=== PATIENT | male | born 1990 | race Caucasian/White ===

== ENCOUNTER → 2017-04-06 | Outpatient (REF) ==
--- NOTE | 2017-04-06 19:39 | REP ---
Left TIB-fib series: Four views: History: Degenerative disease. No comparison study. Findings: There is an intramedullary sharon in place in the tibia. There is a nonunited mid shaft fracture. There is an adjacent mid shaft fracture of the fibular diaphysis which does show at least incomplete bony union. There is diffuse soft tissue swelling about the tibial fracture and there is irregular periosteal reaction along the medial aspect of the tibial fracture at the level of the overlying soft tissue swelling. No bony destructive lesion is seen. No significant malalignment is noted. 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 Adjacent fibular fracture appears at least partially united. There is soft tissue swelling at the level of the fractures. Soft tissue swelling and the irregular medial tibial periosteal reaction raise at least some question of the possibility of chronic osteomyelitis. Signed by Jamey James MD 04/07/2017 08:07 A
== END ==
LOC: M SMT 09:36
PROVIDERS: ATTEND Internal Medicine
DX: Z02.71 Encounter for disability determination (principal)